=== PATIENT | female | born 1955 | race Two or more races ===

== ENCOUNTER 2024-04-03 10:18 | Emergency (ER) | payer MEDICARE, OTHER ==
[~2024-04-03] VITALS: Ht 154.9 cm; Wt 65.0 kg
[2024-04-03] MEDS ORDERED: ESCI20TA37 PO (10:58)
[2024-04-03] MEDS ORDERED: ELVI1TAB3 PO (10:58)
[2024-04-03] MEDS ORDERED: AMIT25TA9 PO (10:58)
[2024-04-03] MEDS ORDERED: HYDR-4061 PO (10:58)
[2024-04-03] MEDS ORDERED: LORA-1000 PO (10:58)
[2024-04-03 11:19] VITALS: TEMP 97.7
[2024-04-03 11:38] LABS: BASOPHILS % (AUTO) 0.1 % (0.0-2.0); EOSINOPHILS % (AUTO) 0 % (1.0-6.0); HEMATOCRIT 38.6 % (36-46); HEMOGLOBIN 12.8 g/dL (12.0-16.0); LYMPHOCYTES # (AUTO) 1.1 K/uL (1.0-4.8); LYMPHOCYTES % (AUTO) 12.7 % (22.0-44.0); MEAN CORPUSCULAR HEMOGLOBIN 27.2 pg (26.0-34.0); MEAN CORPUSCULAR HGB CONC 33.1 G/dL (31.0-37.0); MEAN CORPUSCULAR VOLUME 82 fL (80-100); MONOCYTES # (AUTO) 0.2 K/uL (0.1-1.0); MONOCYTES % (AUTO) 2.4 % (2.0-9.0); NEUTROPHILS # (AUTO) 7.3 K/uL (1.8-7.7); NEUTROPHILS % (AUTO) 84.8 % (40.0-70.0); PLATELET COUNT (AUTO) 300 K/uL (150-450); RED BLOOD CELL COUNT(AUTO) 4.69 MIL/uL (4.00-5.20); RED CELL DISTRIBUTION WIDTH 15.9 % (11.5-14.5); WHITE BLOOD COUNT (AUTO) 8.6 K/uL (4.5-11.0)
[2024-04-03] MEDS ORDERED: ZOLP-162 PO (11:55)
[2024-04-03] MEDS ORDERED: AMIT-260 PO (11:55)
[2024-04-03] MEDS: KETOROLAC TROMETHAMINE 30 MG/ML VIAL IVP ONE (11:58)
[2024-04-03] MEDS: MECLIZINE HCL 25 MG TABLET PO ONE (11:59)
[2024-04-03] MEDS: PANTOPRAZOLE SODIUM 40 MG/VIAL IVP ONE (11:59)
[2024-04-03] MEDS: ONDANSETRON HCL 4 MG/2 ML VIAL IVP ONE (11:59)
[2024-04-03 12:00] LABS: ANION GAP 18 mmol/L (8-16); CALCIUM, TOTAL 8.8 mg/dL (8.8-10.5); CARBON DIOXIDE 18 mmol/L (22-29); CHLORIDE 100 mmol/L (98-107); CREATININE 0.63 mg/dL (0.60-1.30); GLOMERULAR FILTR. RATE CALC > 60 mL/min (>60); GLUCOSE,RANDOM 125 mg/dL (70-110); POTASSIUM 3.2 mmol/L (3.5-5.1); SODIUM SERUM 135 mmol/L (136-145); UREA NITROGEN, BLOOD 17 mg/dL (7-18)
[2024-04-03] MEDS: SODIUM CHLORIDE 0.9% 1,000 ML IV ONE (12:02)
[2024-04-03 12:03] LABS: ALANINE AMINOTRANSFERASE 19 U/L (12-78); ALBUMIN 3.8 g/dL (3.4-5.0); ALKALINE PHOSPHATASE 97 U/L (46-116); ASPARTATE AMINOTRANSFERASE 25 U/L (15-37); BILIRUBIN,TOTAL 0.5 mg/dL (0.1-1.0); LIPASE 19 U/L (16-77); TOTAL PROTEIN, SERUM 7.6 g/dL (6.4-8.2)
[2024-04-03 12:04] LABS: TROPONIN I-HIGH SENSITIVITY Less Than 4 ng/L (<51)
[2024-04-03] MEDS: LORazepam 2 MG/ML VIAL IVP ONE (12:55)
[2024-04-03] MEDS: FentaNYL CITRATE PF 100 MCG/2 ML VIAL IVP ONE (14:49)
[2024-04-03 15:00] VITALS: BP 137/69; PULSE 71; RESP 17; O2SAT 98
[2024-04-03] MEDS: POTASSIUM CHLORIDE 20 MEQ ER TABLET PO ONE (15:22)
[2024-04-03 15:23] LABS: APPEARANCE,URINE CLEAR (CLEAR); BILIRUBIN,URINE NEGATIVE (NEGATIVE); COLOR,URINE LIGHT YELLOW (YELLOW); GLUCOSE, URINE (UA) NEGATIVE (NEGATIVE); KETONES,URINE 80-100 mg/dL (NEGATIVE); LEUKOCYTE ESTERASE ,URINE NEGATIVE (NEGATIVE); NITRATE,URINE NEGATIVE (NEGATIVE); OCCULT BLOOD,URINE SMALL (NEGATIVE); PH,URINE 6.5 (5.0-8.0); PROTEIN,URINE TRACE mg/dL (NEGATIVE); UROBILINOGEN,URINE <=1.0 mg/dL (<=1.0)
[2024-04-03 15:35] LABS: BACTERIA,URINE Rare /HPF (None Seen); SQUAMOUS EPITHELIAL CELL,UR Few /LPF (None Seen); WBC,URINE 0-2 /HPF (0-5)
[2024-04-03] MEDS ORDERED: MECL-302 PO (16:04)
== END 2024-04-03 17:43 | disposition home or self-care (01) ==
LOC: EMS 10:18
DX: R10.13 Epigastric pain (principal); M54.50 Low back pain, unspecified; H81.399 Other peripheral vertigo, unspecified ear; Z91.041 Radiographic dye allergy status; Z88.8 Allergy status to other drugs, medicaments and biological substances; Z79.899 Other long term (current) drug therapy
CPT/HCPCS: 80048; 80076; 81001; 83690; 84484; 85025; 36415; 74176; 99285; 93005; 96361; 96374; 96375; J3010; J1885; J2060; J2405; C9113; J7030